=== PATIENT | male | born 1980 | race American Indian/Alaskan Native ===

== ENCOUNTER 2019-01-24 22:49 | Emergency (ER) | payer OTHER ==
[2019-01-24] MEDS ORDERED: ASPIRIN PO ONE (23:13)
--- NOTE | 2019-01-24 23:24 | XRay Report ---
PROCEDURE: XR CHEST 1V AP TECHNIQUE: Chest radiograph single view. HISTORY: Chest Pain COMPARISONS: None . FINDINGS: Heart: Normal. Mediastinum/Vessels: Normal. Lungs/Pleural space: Normal. Bony thorax: No acute osseous abnormality. Life support devices: None. IMPRESSION: No acute cardiopulmonary abnormality. This document is electronically signed by Antonia Grande DO., January 24 2019 11:22:55 PM ET
[2019-01-25 00:01] LABS: Basophils % (Auto) 0.7 % (0.0-1.8); Eosinophils # (Auto) 0.1 K/mm3 (0.0-0.4); Eosinophils % (Auto) 1.3 % (0.0-4.3); Lymphocytes # (Auto) 1.8 K/mm3 (1.2-5.4); Mean Corpuscular HGB Conc 35 % (32-34); Mean Corpuscular Volume 93 fl (84-94); Monocytes # (Auto) 0.5 K/mm3 (0.0-0.8); Monocytes % (Auto) 10.7 % (0.0-7.3); Platelet Count 247 K/mm3 (140-440); Red Blood Count 4.64 M/mm3 (3.65-5.03); Red Cell Distribution Width 13.4 % (13.2-15.2)
[2019-01-25 00:21] LABS: BUN/Creatinine Ratio 12; Blood Urea Nitrogen 11 mg/dL (9-20); Calcium 9.7 mg/dL (8.4-10.2); Hemolysis Index 51
--- NOTE | 2019-01-25 00:39 | Emergency Department Report ---
HPI - General Chief Complaint: Arrhythmia/Palpitations Time Seen by Provider: 01/24/19 23:58 - HPI HPI: 38-year-old Afro-[place] male presents to the emergency department with complaint of a rapid heartbeat/palpitations, some abnormal "sensation" in the chest that started earlier this evening while at work. The patient has a history of anxiety and says that he is usually able to control it with some breathing exercises or just force himself to calm down. However, this time the patient was unable to control these symptoms. He was driving in to the emergency department from work and says that they were sent just prior to arrival. Currently, the patient says he is feeling back at his baseline. The patient admits that he took some type of energy supplement earlier in the day. He also says that he and his significant other are currently on day 5 of some type of detox in which they only eat fruits, vegetables, drink water, and take some type of detox supplement that has zinc, magnesium, and some type of dietary plan of herbs and vitamins. He otherwise denies any past medical history. He is a former smoker. He denies any illicit drug use. No recent travel or sick contacts at home. ED Past Medical Hx - Past Medical History Previous Medical History?: Yes Hx GERD: Yes Additional medical history: acid reflux - Surgical History Past Surgical History?: No - Social History Smoking Status: Former Smoker Substance Use Type: None - Medications Home Medications: Home Medications Medication Instructions Recorded Confirmed Last Taken Type No Known Home Medications [No 07/10/15 07/10/15 Unknown History Reported Home Medications] ED Review of Systems ROS: Stated complaint: CP Other details as noted in HPI Comment: All other systems reviewed and negative Constitutional: denies: chills, fever Eyes: denies: eye pain, vision change ENT: denies: ear pain, throat pain Respiratory: denies: cough, wheezing Cardiovascular: chest pain, palpitations Gastrointestinal: denies: abdominal pain, vomiting Genitourinary: denies: dysuria, discharge Musculoskeletal: denies: back pain, arthralgia Skin: denies: rash, lesions Neurological: denies: headache, weakness Psychiatric: anxiety Physical Exam - Physical Exam Vital Signs: Vital Signs 01/24/19 01/25/19 23:07 00:08 Temperature 98.6 F Pulse Rate 93 H 92 H Respiratory 20 20 Rate Blood Pressure 142/87 Blood Pressure 147/87 [Left] O2 Sat by Pulse 98 98 Oximetry Physical Exam: GENERAL: The patient is well-developed well-nourished. HENT: Normocephalic. Atraumatic. Patient has moist mucous membranes. EYES: Extraocular motions are intact. NECK: Supple. Trachea is midline. CHEST/LUNGS: Clear to auscultation. There is no respiratory distress noted. HEART/CARDIOVASCULAR: Regular. There is no tachycardia. There is no murmur. ABDOMEN: Abdomen is soft, nontender. Patient has normal bowel sounds. There is no abdominal distention. SKIN: Skin is warm and dry. NEURO: The patient is awake, alert, and oriented. The patient is cooperative. The patient has no focal neurologic deficits. The patient has normal speech. MUSCULOSKELETAL: There is no tenderness or deformity. There is no limitation range of motion. There is no evidence of acute injury. ED Course Vital Signs 01/24/19 01/25/19 23:07 00:08 Temperature 98.6 F Pulse Rate 93 H 92 H Respiratory 20 20 Rate Blood Pressure 142/87 Blood Pressure 147/87 [Left] O2 Sat by Pulse 98 98 Oximetry ED Medical Decision Making - Lab Data Result diagrams: 01/24/19 23:41 01/24/19 23:41 - EKG Data -: EKG Interpreted by Md EKG shows normal: sinus rhythm, axis, intervals, QRS complexes, ST-T waves Rate: normal - EKG Data When compared to previous EKG there are: previous EKG unavailable Interpretation: normal EKG - Radiology Data Radiology results: image reviewed interpreted by me: Chest x-ray does not show any acute process. There are no pleural effusions, obvious pneumonia and there is no pneumothorax. - Medical Decision Making This patient presented to the emergency department with a complaint of having some palpitations and abnormal chest sensation earlier in the day at work and on the way to the emergency department. At the time of my examination, the patient says he is asymptomatic. An EKG was done that does not show any signs of ST elevation AL, ischemia or dysrhythmia. Chest x-ray does not show any focal consolidation, pneumothorax, pneumonia, pleural effusions, or any other acute process. The patient's labs were unremarkable including a CBC, metabolic panel, troponin and a thyroid function. He was reevaluated multiple times over multiple hours and there has been no return of his symptoms and the patient has remained stable. He will be discharged home to follow up with primary care and was given a referral for cardiology. The patient took some type of energy supplement on top of his detoxification diet with some type of mixed of herbs and vitamins. He also has a history of anxiety. The patient is low suspicion for coronary artery disease. He will return to the ER with any worsening of symptoms or any acute distress. - Differential Diagnosis anxiety, dehydration, hypothyroidism, AL, dysrhythmia Critical Care Time: No Critical care attestation.: If time is entered above; I have spent that time in minutes in the direct care of this critically ill patient, excluding procedure time. ED Disposition Clinical Impression: Palpitations, Anxiety Disposition: TO HOME OR SELFCARE Is pt being admited?: No Condition: Stable Instructions: Palpitations (ED), Anxiety (ED) Additional Instructions: Please follow up with a primary care physician in the next few days. I recommend avoiding any further energy drinks or supplements. Return to the emergency Department with any worsening of her symptoms or any acute distress. I am giving you a referral for a local inweaver, Dr. Del Real, to follow up regarding your palpitations. Referrals: WALLACE ELLIS MD [Primary Care Provider] - 3-5 Days LUIS ANGEL DEL REAL MD [Staff Physician] - 3-5 Days Forms: Work/School Release Form(ED) Time of Disposition: 02:54
[2019-01-25 03:20] VITALS: BP 127/76
== END 2019-01-25 03:24 | disposition home or self-care (01) ==
LOC: ED 22:49
DX: R00.2 Palpitations (principal); K21.9 Gastro-esophageal reflux disease without esophagitis; F41.9 Anxiety disorder, unspecified; Z87.891 Personal history of nicotine dependence
CPT/HCPCS: 36415; 71045; 80048; 84443; 84484; 85025; 93005; 93010; 99284